=== PATIENT | female | born 1970 ===

== ENCOUNTER 2016-10-31 15:42 | Emergency (ER) | payer OTHER ==
[~2016-10-31] VITALS: Ht 154.9 cm; Wt 71.8 kg
[2016-10-31] MEDS ORDERED: LORAZEPAM 2 MG INJ IV STA (15:46)
[2016-10-31] MEDS ORDERED: SOD CHLORIDE 0.9% 1,000 ML IV STA ×2 (15:46→17:29)
[2016-10-31 15:53] VITALS: Ht 154.9 cm; Wt 71.8 kg
[2016-10-31] MEDS ORDERED: DIVA500T7 PO (16:34)
--- NOTE | 2016-10-31 16:47 | ERD ---
ER Documentation Chief Complaint Date/Time DATE: 10/31/16 TIME: 16:38 Chief Complaint [facility], c/o med refil, in triage pt has hr 141 dr zarate aware HPI This is a 46-year-old -[place] female with a known history of bipolar and schizophrenia. The patient indicates that she has recently moved from [facility] to [facility]. She does not yet have a physician who can refill her medications as she states she is dealing with insurance and does not have an appointment to see the new doctor until next week. For the past 3 days the patient has run out of her Depakote. She states she takes 500 mg 3 times a day of Depakote. She also takes 10 mg tablets of Haldol once daily, mirtazapine 30mg and trihexyphenidyl once daily. The patient states her only reasoning for coming to the emergency department today is to have her Depakote refilled as she has all of her other medications. She denies any suicidal or homicidal thoughts or ideations. She denies any auditory tactile or visual hallucinations. She denies headache or changes in vision. She denies any chest pain or pressure that radiates to the neck arm back or jaw. She denies any palpitations and no shortness of breath ROS All systems reviewed and are negative except as per history of present illness. Medications Home Meds Active Scripts Divalproex Sodium* (Depakote*) 500 Mg Tablet., 500 MG PO TID, #30 TAB Prov:RALPH ZARATE 10/31/16 Allergies Allergies: Coded Allergies: Penicillins (Unverified Allergy, Unknown, 10/31/16) Physical Exam Vitals Vital Signs Date Time Temp Pulse Resp B/P Pulse Ox O2 Delivery O2 Flow Rate FiO2 10/31/16 15:53 97.9 140 22 148/92 99 Physical Exam Constitutional:Well-developed. Well-nourished. HEENT:Normocephalic. Atraumatic.Pupils were equal round reactive to light. Moist mucous membranes.No tonsillar exudates. Neck: No nuchal rigidity. No lymphadenopathy. No posterior cervical spine tenderness or step-offs. Respiratory: Not using accessory muscles of respiration.Lungs were clear to auscultation bilaterally. No rhonchi. No rales. No wheezing. Cardiovascular: Regular rate regular rhythm.No murmurs. No rubs were appreciated.S1, S2 normal. Distal pulses are palpable 2+ bilaterally. GI: Abdomen was soft. Nontender. Non Distended. No pulsatile abdominal masses or bruits. No rebound. No guarding. Bowel sounds were present and normal. Muscle skeletal: Full range of motion of both the upper and lower extremities bilaterally.Normal muscle tone.No assymetrical calf tenderness or swelling. Skin: No petechia, no purpura. No lesions on the palms or the soles of the feet. No maculopapular rash. NEURO: Patient was alert, awake, orientated x3.No facial droop. Patient had tardive dyskinesia with involuntary movements of the mouth and tongue. Gait observed and normal with no ataxia.Speech had regular rate and rhythm. No focal neurological deficits. Patient denied any suicidal or homicidal thoughts or ideations. No auditory tactile or visual hallucinations. Results 24 hrs Current Medications Medications (Trade) Dose Ordered Sig/Citlalli Route PRN Reason Start Time Stop Time Status Last Admin Dose Admin Sodium Chloride (NS) 1,000 ml @ 1,000 mls/hr Q1H STAT IV 10/31/16 15:46 10/31/16 16:45 10/31/16 16:11 Lorazepam (Ativan) 1 mg ONCE STAT IV 10/31/16 15:46 10/31/16 15:48 DC 10/31/16 16:11 Procedures/MDM This patient presented to the emergency department requesting a medication refill of her Depakote. She was tachycardic upon arrival into the emergency department and therefore was immediately placed in a supervisor tank cleaning continuous pulse oximetry and IV access was established by nursing staff. The patient received 1 mg of Ativan intravenously. There is no electrolyte abnormalities. 12 Lead EKG tracing ordered and reviewed by myself showed: Sinus tachycardia of 118 bpm and no arrhythmia. W[place] interval normal. QRS duration normal. No ST segment elevation No ST segment depression. No changes consistent with acute ischemia. The patient also received Geodon p.o. in the emergency department. The sinus tachycardia had resolved and the patient had tardive dyskinesia which appeared to be a secondary adverse effect from her antipsychotic medications. She did not appear to be a threat to herself or others and was not acutely psychotic. I did refill her Depakote and gave her a 10 day supply. The patient was discharged home in fair condition. They were instructed to return to the emergency department at any time if there was any worsening of their condition. The patient stated they would follow up with their PCP in the next 24-48 hours to initiate a suitable medication regimen under the care of their PCP as well as to allow their PCP to monitor any drug reactions. The patient was discharged home with prescriptions after they gave informed consent to the new medication. They were also fully informed by myself on the adverse effects and adverse drug interactions in order to provide adequate safeguards to prevent possible adverse reactions to medications. Departure Diagnosis: Primary Impression: Sinus tachycardia Additional Impression: Encounter for medication review Condition: Fair Patient Instructions: Schizophrenia, General RALPH ZARATE Oct 31, 2016 16:47
[2016-10-31 16:57] LABS: CHLORIDE 103 mmol/L (97-110); INR 0.98
[2016-10-31 16:58] LABS: ALBUMIN 4.5 g/dl (3.3-4.9); PARTIAL THROMBOPLASTIN TIME 27.1 Sec (25.0-35.0)
[2016-10-31 16:59] LABS: SODIUM 140 mmol/L (135-144)
[2016-10-31] MEDS ORDERED: LORAZEPAM 2 MG INJ IV ONE (17:00)
[2016-10-31] MEDS ORDERED: ZIPRASIDONE 20 MG CAP PO ONE (17:00)
[2016-10-31 17:01] LABS: ALANINE AMINOTRANSFERASE 31 IU/L (13-69); ALBUMIN/GLOBULIN RATIO 1.09; ALKALINE PHOSPHATASE 136 IU/L (42-121); ANION GAP 20 (8-16); ASPARTATE AMINO TRANSFERASE 23 IU/L (15-46); BILIRUBIN,INDIRECT 0.5 mg/dl (0-1.1); BILIRUBIN,TOTAL 0.5 mg/dl (0.2-1.3); BLOOD UREA NITROGEN 14 mg/dl (7-20); CARBON DIOXIDE 21 mmol/L (21-31); CREATININE 0.63 mg/dl (0.44-1.00); GLUCOSE 255 mg/dl (70-220); TOTAL PROTEIN 8.6 g/dl (6.1-8.1)
[2016-10-31 17:04] LABS: ACETAMINOPHEN < 10.0 ug/ml (10.0-30.0); ETHANOL < 10.0 mg/dl; SALICYLATE < 1.0 mg/dl (5.0-30.0)
[2016-10-31 17:07] LABS: BASOPHILS % 0.4 % (0.0-2.0); EOSINOPHILS # 0.1 10^3/ul (0.0-0.5); EOSINOPHILS % 0.6 % (0.0-7.0); HEMATOCRIT 42.8 % (37.0-47.0); HEMOGLOBIN 14.8 g/dl (12.0-16.0); LYMPHOCYTES # 3.3 10^3/ul (0.8-2.9); LYMPHOCYTES % 29.6 % (15.0-51.0); MEAN CORPUSCULAR HEMOGLOBIN 33.9 pg (29.0-33.0); MEAN CORPUSCULAR HGB CONC 34.6 g/dl (32.0-37.0); MEAN CORPUSCULAR VOLUME 98.2 fl (82.0-101.0); MEAN PLATELET VOLUME 8.6 fl (7.4-10.4); MONOCYTE # 0.6 10^3/ul (0.3-0.9); MONOCYTES % 5.4 % (0.0-11.0); NEUTROPHIL # 7.1 10^3/ul (1.6-7.5); PLATELET COUNT 373 10^3/UL (140-440); RED BLOOD COUNT 4.36 10^6/ul (4.20-5.40); RED CELL DISTRIBUTION WIDTH 13.2 % (11.5-14.5)
[2016-10-31 17:19] LABS: CONDITION 1
[2016-10-31 18:00] VITALS: BP 116/72; PULSE 89; RESP 20; TEMP 98.3
== END 2016-10-31 18:41 | disposition home or self-care (01) ==
LOC: FTE 15:42
DX: R00.0 Tachycardia, unspecified (principal); R40.2252 Coma scale, best verbal response, oriented, at arrival to emergency department; R40.2362 Coma scale, best motor response, obeys commands, at arrival to emergency department; R40.2142 Coma scale, eyes open, spontaneous, at arrival to emergency department; R00.2 Palpitations
CPT/HCPCS: 80053; 80306; 85025; 85610; 85730; 93005; J2060; J7030; 96374; 96376